=== PATIENT | female | born 1965 | race Caucasian/White ===

== ENCOUNTER 2020-11-29 20:06 | Emergency (ER) | payer OTHER, SELFPAY ==
[2020-11-29 20:32] VITALS: BP 178/106; PULSE 94; RESP 20; TEMP 37.1; O2SAT 97
[2020-11-29] MEDS: KETOROLAC (*BKC) 60 MG/2 ML VIAL IM (20:52)
[2020-11-29] MEDS: ONDANSETRON HCL ODT 4 MG TABLET PO (20:52)
[2020-11-29] MEDS: DIVALPROEX SODIUM ER 500 MG TAB 750 MG PO (20:52)
[2020-11-29] MEDS: DEXAMETHASONE SOD PHOS INJ 4 MG/ML VIAL 10 MG IM (20:58)
[2020-11-29] MEDS: BACLOFEN 10 MG TABLET 20 MG PO (21:00)
--- NOTE | 2020-11-29 21:45 | ED.HA ---
HPI - Headache General Chief Complaint: Headache Stated Complaint: headache Time Seen by Provider: 11/29/20 20:40 Source: patient and family Mode of arrival: ambulatory Limitations: no limitations History of Present Illness HPI Narrative: Patient presents with headache and right sided neck pain for the last few days which has not improved with NSAID at home. Pain is sharp with movement, moderately severe, ongoing, and made worse by moving neck to the right. MD elicited complaint: headache and migraine Pertinent past history: migraines Onset description: gradually Location: right Quality & Timing: sharp and similar to previous headaches Exacerbating factors: movement of head/neck Relieving factors: nothing Context: occurred at rest Associated symptoms: none Related Data Home Medications Medication Instructions Recorded Confirmed pantoprazole 40 mg PO DAILY 11/29/20 11/29/20 sucralfate 1 g PO TIDWMEAL 11/29/20 11/29/20 trazodone 100 mg PO HS 11/29/20 11/29/20 Allergies Allergy/AdvReac Type Severity Reaction Status Date / Time morphine Allergy Itching Verified 11/29/20 20:31 Review of Systems Constitutional: Constitutional: Reports no additional constitutional complaints Eyes: Eyes: Reports no additional eye complaints ENT: Reports system reviewed and no additional complaints, except as documented Cardiovascular: Cardiovascular: Reports no additional cardiovascular complaints Respiratory: Respiratory: Reports no additional respiratory complaints Gastrointestinal: Gastrointestinal: Reports no additional gastrointestinal complaints Genitourinary: Genitourinary: Reports no additional female genitourinary complaints Musculoskeletal: Musculoskeletal: Reports no additional musculoskeletal complaints Integumentary/Breasts: Skin/Breast: Reports system reviewed and no additional complaints, except as docu Neurologic: Reports system reviewed and no additional complaints, except as documented Psychiatric: Psychiatric: Reports no additional psychiatric complaints Endocrine: Endocrine: Reports no additional endocrine complaints Hematologic/Lymphatic: Hematologic/Lymphatic: Reports no additional hematologic/lymphatic complaints Allergic/Immunologic: Allergic/Immunologic: Reports no additional allergic/immunologic complaints [facility] Past Medical History Medical History (Updated 11/30/20 @ 04:12 by Jalil Santana MD) Cervical fusion syndrome Family History Family History (Updated 11/30/20 @ 04:12 by Jalil Santana MD) Mother Carcinoma of colon Social History Social History (Updated 11/30/20 @ 04:13 by Jalil Santana MD) Smoking status: Never smoker Alcohol intake: never Exam Const: General: no acute distress Orientation/consciousness: patient oriented x3 HENMT: Head: normal to inspection Ears: external ears normal and TM's normal bilaterally Face and sinus: normal facial exam Eyes: Conjunctivae: conjunctivae normal Neck: Neck: normal visual inspection Chest: Chest palpation & inspection: normal inspection of the chest Resp: Effort & Inspection: normal respiratory effort Auscultation: clear to auscultation bilaterally Cardio: Rate: regular rate Rhythm: regular rhythm GI: GI Palp: Yes Soft to palpation : General: Yes no CVA tenderness Back/Spine/Pelvis: Back: no CVA tenderness Skin: General skin exam: normal color Neuro: General: patient oriented x3 and moves all extremities Extrem: General: normal to inspection Psych: Appearance: grossly normal Mental Status: mental status grossly normal Thought content: Yes Normal thought content present Course Course Emergency Course: She was given medications to help relax her neck after she was examined well, with particular concern for signs/symptoms of meningitis or new traumatic pain. After a few minutes of the medications she was feeling well and discharges withm scripts for ketorolac 10mg one qid prn, and baclofen 20mg one tid
[2020-11-29 22:02] VITALS: BP 130/78; PULSE 78; RESP 18; O2SAT 98
== END 2020-11-29 22:04 | disposition home or self-care (01) ==
PROVIDERS: Emergency Provider Emergency Medicine; PCP Family Medicine
DX: G43.711 Chronic migraine without aura, intractable, with status migrainosus (principal)
CPT/HCPCS: 96372; 99283; 99284; A9270; J1100; J1885

== ENCOUNTER 2020-12-15 11:42 | Emergency (ER) | payer OTHER, SELFPAY ==
--- NOTE | ~2020-12-15 | XR_ITS ---
EXAMINATION: XR chest 2V DATE: 12/15/2020 13:29 INDICATION: Chest pain. TECHNIQUE: Frontal and lateral views of the chest were obtained. COMPARISON: Chest 2 views 05/13/2018 FINDINGS: The chest demonstrates clear lungs without pneumonia, pleural effusion, or pneumothorax. Th e heart size is normal. There are surgical clips in the abdomen. There are changes of anterior fusion procedure in cervical spine. IMPRESSION: 1. No acute cardiopulmonary disease. Reviewed, dictated and finalized at location A. NESS APPLICATIONS MANAGER
[2020-12-15 12:05] VITALS: BP 176/91; PULSE 103; RESP 20; TEMP 36.9; O2SAT 96
--- NOTE | 2020-12-15 12:08 | ECG_ITS ---
Measurements Intervals [place] Rate: 102 P: 62 [place]: 151 QRS: 40 QRSD: 80 T: 36 QT: 328 QTc: 429 Interpretive Statements SINUS TACHYCARDIA EARLY PRECORDIAL R/S TRANSITION BASELINE WANDER- III BORDERLINE ECG Electronically Signed On 12-15-2020 12:26:07 WORKING SECOND HAND by Casey Laura D.O.
[2020-12-15 12:34] LABS: Basophils Absolute Auto 0.03 K/mm3 (0.00-0.10); Basophils Percent Auto 0.5 % (0.0-1.0); Eosinophils Absolute Auto 0.03 K/mm3 (0.02-0.50); Eosinophils Percent Auto 0.5 % (1.0-6.0); Hematocrit 42.4 % (35.0-49.0); Immature Granulocyte Absolute 0.02 K/mm3 (0.00-0.00); Immature Granulocyte Percent A 0.3 % (0.0-0.0); Lymphocytes Absolute Auto 0.86 K/mm3 (1.10-4.50); Mean Corpuscular Hemoglobin 28.8 pg (27.0-31.0); Mean Corpuscular Volume 87.2 fL (78.0-102.0); Mean Platelet Volume 10.6 fl (9.2-11.8); Monocytes Percent Auto 4.5 % (2.0-11.0); Neutrophils Absolute Auto 5.4 K/mm3 (1.7-7.2); Neutrophils Percent Auto 81.2 % (50.0-70.0); Platelet Count Result 213 K/mm3 (150-420); Red Blood Count 4.86 M/mm3 (4.20-5.40); Red Cell Distribution Width 12.7 % (11.6-14.4); White Blood Count 6.6 K/mm3 (4.8-10.8)
[2020-12-15 12:36] LABS: Appearance Urine Clear (Clear); Bilirubin Urine Negative (Negative); Color Urine Yellow (Yellow); Glucose Urine UA Negative (Negative); Ketones Urine Trace (Negative); Leukocyte Esterase Ur Negative (Negative); Nitrate Urine Negative (Negative); Protein Urine 2+ (Negative); Specific Grav Ur >= 1.030 (1.010-1.020); Urobilinogen Urine 0.2 mg/dL (0.2-1.0); pH Urine 6.5 (5.0-8.0)
[2020-12-15] MEDS: KETOROLAC 30 MG/ML VIAL (*BKC) IV PUSH (12:38)
[2020-12-15] MEDS: SODIUM CHLORIDE 0.9% IV 500 ML 999 ML IV CONT (12:39)
[2020-12-15 12:41] LABS: Add Urine Microscopic? YES; Bacteria Urine Trace /hpf; Blood Urine Trace (Negative); RBC Urine 0-2 /hpf (0-2); Squamous Epithelial Cell Urine Rare /hpf (Few); WBC Urine 0-3 /hpf (0-3)
[2020-12-15 12:48] LABS: D Dimer 0.41 mg/L (0.19-0.50)
[2020-12-15 12:53] LABS: Alanine Aminotransferase 23 U/L (14-59); Albumin Level 3.9 g/dL (3.4-5.0); Alkaline Phosphatase 87 U/L (46-116); Anion Gap 9 mmol/L (8-16); Aspartate Amino Transferase 19 U/L (15-37); Bilirubin,Total 0.3 mg/dL (0.00-1.00); Blood Urea Nitrogen 17 mg/dL (7-18); Calcium 8.9 mg/dL (8.5-10.1); Carbon Dioxide 29 mmol/L (21-32); Chloride 102 mmol/L (98-108); Estimated Glomerular Filt Rate > 60; Glucose 98 mg/dL (70-99); Osmolality Calculated 291 mOsm/kg (285-295); Potassium 3.9 mmol/L (3.5-5.1); Sodium 140 mmol/L (136-145); Total Protein 7.4 g/dL (6.4-8.2); Troponin I 7.5 ng/L (0.00-60.4)
--- NOTE | 2020-12-15 13:38 | ED.GENADULT ---
HPI - General Adult General Chief complaint: Dizziness Stated complaint: Dizzy/head pain/ chest pain/ high blood pressure Source: patient Mode of arrival: ambulatory Limitations: no limitations History of Present Illness HPI narrative: this is a 55-year-old female presents with some headache was seen approximately 2 weeks ago for similar type headache and was diagnosed with a migraine at that time. Patient was seen yesterday in her dentist office and had blood pressure of systolic 220 and they were concerned and asked to follow-up with her primary care physician. Patient is concerned about her blood pressure and developed a headache and some chest tightness with no cough no congestion no shortness of breath no fever chills. Blood pressure had come down and patient has a history of anxiety and marital issues and problems. With a chest pressure was reproducible with no radiation no shortness of breath no diaphoresis no nausea vomiting. Headache is alert typical for her except for it was radiating into her neck and she did explain that she has cervical arthritic type pain. There is no neurological deficits the patient was ambulatory with no nausea or vomiting no blurry vision. Onset (ago): day(s) Location: head and chest Radiation: non-radiation Severity: moderate Severity scale (1-10): 6 Quality: aching Pain Consistency: intermittent Relieving factors: none Exacerbating factors: none Associated symptoms: denies other symptoms Related Data Home Medications Medication Instructions Recorded Confirmed pantoprazole 40 mg PO DAILY 11/29/20 12/15/20 sucralfate 1 g PO TIDWMEAL 11/29/20 12/15/20 trazodone 100 mg PO HS 11/29/20 12/15/20 tramadol 50 mg PO TID PRN 12/15/20 12/15/20 Allergies Allergy/AdvReac Type Severity Reaction Status Date / Time morphine Allergy Itching Verified 11/29/20 20:31 Review of Systems Review of Systems: All systems reviewed & are unremarkable except as noted in HPI and below PMFSH Past Medical History Medical History Cervical fusion syndrome Family History Family History Mother Carcinoma of colon Social History Social History Smoking status: Never smoker Alcohol intake: never Exam Const: General: no acute distress and alert Orientation/consciousness: patient oriented x3 HENMT: Head: normal to inspection Eyes: Conjunctivae: conjunctivae normal Pupils: Equal, round and reactive pupils present EOM: EOMs intact bilaterally Direct Ophthalmoscopy: no photophobia Neck: Neck: normal visual inspection Chest: Chest palpation & inspection: normal inspection of the chest Resp: Effort & Inspection: normal respiratory effort Auscultation: clear to auscultation bilaterally Cardio: Rate: regular rate Rhythm: regular rhythm GI: GI Palp: Yes Soft to palpation : General: Yes no CVA tenderness Urinary Catheter: Urinary Catheter: patent and draining Back/Spine/Pelvis: Back: no CVA tenderness Skin: General skin exam: normal color Rashes: no rashes Neuro: General: patient oriented x3, moves all extremities, no meningeal signs, no focal motor deficits and CN's II-XI intact bilaterally Cranial nerves: Yes Nystagmus not present Speech: normal speech Gait exam (Neuro): Normal gait present Extrem: General: normal to inspection and no pedal edema Psych: Mental Status: mental status grossly normal Affect: normal affect Course Course Emergency Course: Reassessment of patient, patient states that she is more comfortable, did order a head CT but the patient declined stating that she had a normal head CT approximately 2 weeks ago at [facility]. Reviewed all the x-ray and lab findings with patient her blood pressure currently 150/90 and advised to follow-up with her primary care physician to have her blood pressur
[2020-12-15 13:47] VITALS: BP 157/90
== END 2020-12-15 13:50 | disposition home or self-care (01) ==
PROVIDERS: Emergency Provider Emergency Medicine; PCP Family Medicine
DX: G43.909 Migraine, unspecified, not intractable, without status migrainosus (principal); I10 Essential (primary) hypertension
CPT/HCPCS: 36415; 71046; 80053; 81001; 84484; 85025; 85380; 93005; 96361; 96374; 99283; 99284; J1885; J7040

== ENCOUNTER 2020-12-25 20:34 | Emergency (ER) | payer OTHER, SELFPAY ==
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
[2020-12-25 20:49] VITALS: BP 160/78; PULSE 99; RESP 20; TEMP 36.7; O2SAT 98
[2020-12-25] MEDS: KETOROLAC (*BKC) 60 MG/2 ML VIAL IM (21:05)
[2020-12-25 21:07] LABS: Basophils Absolute Auto 0.03 K/mm3 (0.00-0.10); Basophils Percent Auto 0.6 % (0.0-1.0); Eosinophils Absolute Auto 0.06 K/mm3 (0.02-0.50); Eosinophils Percent Auto 1.1 % (1.0-6.0); Hematocrit 42.4 % (35.0-49.0); Hemoglobin 14.2 g/dL (12.0-15.0); Immature Granulocyte Absolute 0.02 K/mm3 (0.00-0.00); Immature Granulocyte Percent A 0.4 % (0.0-0.0); Lymphocytes Percent Auto 22.2 % (18.0-42.0); Mean Corpuscular HGB Conc 33.5 g/dL (32.0-36.0); Mean Corpuscular Hemoglobin 29.1 pg (27.0-31.0); Mean Corpuscular Volume 86.9 fL (78.0-102.0); Mean Platelet Volume 10.7 fl (9.2-11.8); Monocytes Absolute Auto 0.23 K/mm3 (0.10-0.90); Monocytes Percent Auto 4.3 % (2.0-11.0); Neutrophils Absolute Auto 3.9 K/mm3 (1.7-7.2); Neutrophils Percent Auto 71.4 % (50.0-70.0); Platelet Count Result 210 K/mm3 (150-420); Red Blood Count 4.88 M/mm3 (4.20-5.40); Red Cell Distribution Width 12.3 % (11.6-14.4); White Blood Count 5.4 K/mm3 (4.8-10.8)
[2020-12-25 21:16] LABS: Amphetamine Screen Urine Negative (Negative); Barbiturate Screen Urine Negative (Negative); Benzodiazepines Screen Urine Negative (Negative); Cannabinoid Screen Urine Negative (Negative); Cocaine Screen Urine Negative (Negative); Methadone Screen Urine Negative (Negative); Opiate Screen Urine Negative (Negative); Phencyclidine Screen Urine Negative (Negative)
[2020-12-25 21:19] LABS: Partial Thromboplastin Time 25.1 SEC (23.90-30.70); Prothrombin Time 10.6 Seconds (9.50-12.10)
[2020-12-25 21:28] LABS: Appearance Urine Clear (Clear); Bilirubin Urine Negative (Negative); Color Urine Yellow (Yellow); Glucose Urine UA Negative (Negative); Ketones Urine Negative (Negative); Leukocyte Esterase Ur Negative (Negative); Nitrate Urine Negative (Negative); Protein Urine Trace (Negative); Specific Grav Ur <= 1.005 (1.010-1.020); Urobilinogen Urine 0.2 mg/dL (0.2-1.0)
[2020-12-25 21:30] LABS: Alanine Aminotransferase 26 U/L (14-59); Albumin Level 4.1 g/dL (3.4-5.0); Alkaline Phosphatase 96 U/L (46-116); Anion Gap 12 mmol/L (8-16); Aspartate Amino Transferase 29 U/L (15-37); Bilirubin,Total 0.2 mg/dL (0.00-1.00); Blood Urea Nitrogen 15 mg/dL (7-18); Calcium 8.6 mg/dL (8.5-10.1); Carbon Dioxide 29 mmol/L (21-32); Chloride 101 mmol/L (98-108); Creatine Kinase 98 U/L (26-192); Estimated CRCL calculation 56 ml/min; Estimated Glomerular Filt Rate 59; Glucose 112 mg/dL (70-99); Lipase 129 U/L (73-393); Osmolality Calculated 295 mOsm/kg (285-295); Potassium 3.1 mmol/L (3.5-5.1); Sodium 142 mmol/L (136-145)
[2020-12-25 21:33] LABS: Add Urine Microscopic? YES; Blood Urine Trace-Intact (Negative); RBC Urine 0-2 /hpf (0-2); Squamous Epithelial Cell Urine Moderate /hpf (Few)
[2020-12-25 22:16] VITALS: BP 136/77; PULSE 80; RESP 20; TEMP 36.7; O2SAT 98
== END 2020-12-25 22:18 | disposition home or self-care (01) ==
PROVIDERS: Emergency Provider Emergency Medicine; PCP Family Medicine
DX: S30.0XXA Contusion of lower back and pelvis, initial encounter (principal); Y04.0XXA Assault by unarmed brawl or fight, initial encounter
CPT/HCPCS: 36415; 72192; 80053; 80307; 81001; 82550; 83690; 85025; 85610; 85730; 96372; 99283; 99284; J1885

== ENCOUNTER 2020-12-28 13:50 | Outpatient (RCR) | payer OTHER, SELFPAY ==
--- NOTE | 2020-12-28 15:09 | PTOPEVAL ---
Thank you for referring Ashley Mathew to [facility].? The patient is scheduled to be seen for therapy? ____x/week for ___ weeks. Please review, sign, date and return this plan of care SENIA. I agree with and certify that the following plan of care is medically necessary. Referring Physician Date Admitting Provider: Attending Provider: BIJU WINCHESTER Referring Provider: JayleenPT Outpatient Evaluation Start: 12/28/20 13:57 Freq: Status: Active Protocol: Document 12/28/20 14:09 Ashlee (Rec: 12/28/20 15:07 [facility] [id number]) Therapy Assessment Status Assessment Status Assessment Status Evaluation Outpatient Past Medical History Neurological History Hx Migraine Yes Cardiovascular History Hx Hypertension Yes Gastrointestinal History Hx Gastroesophageal Reflux Disease Yes Genitourinary History Hx Nephrectomy Yes Musculoskeletal History Hx Back Pain Yes Hx Spinal Surgery Yes: back and neck HEENT History Hx Tonsillectomy Yes Reproductive History Hx Hysterectomy Yes Evaluation Information Problem Diagnosis neck pain, DDD Onset 12/23/20 Additional Evaluation Detail ndi = 60% Subjective Information patient reports she has been Query Text:As Reported By Patient/ having light neck pain and Family headaches for over a month. however, she reports the past few weeks she has had gradual increased neck pain and severe headaches. she reports however, for the last few days she has had no headaches. she reports she is not doing many activities at home to help keep her headaches down. she reports she has had 3 surgeries to her neck in the past. she reports these have included 3 different fusions. she reports she is fused at multiple levels. patient reports she has increased neck pain and headaches with lifting, turning her head, everything. Prior Level of Function Comments Additional Prior Level of Function prior to 2-3 months ago, Comments patient was able to work in ulises, work in house, use treadmill, and perform daily exercise wit
== END 2021-02-14 13:54 | disposition home or self-care (01) ==
LOC: CHSPT 13:50
DX: M50.30 Other cervical disc degeneration, unspecified cervical region (principal)
CPT/HCPCS: 97014; 97110; 97140; 97161; G0283

== ENCOUNTER 2021-07-17 18:43 | Emergency (ER) | payer OTHER, SELFPAY ==
--- NOTE | ~2021-07-17 | CT_ITS ---
EXAMINATION: CT abdomen pelvis wo con DATE: 07/17/2021 20:09 INDICATION: Upper abdominal pain. Nausea. TECHNIQUE: Computed tomography (CT) of the abdomen and pelvis was performed without intravenous contr ast. Automated exposure control and iterative reconstruction technique were employed. The dose-length product was 523.15 mGy-cm. COMPARISON: CT abdomen and pelvis 02/22/2018 FINDINGS: The visualized portions of the lung bases demonstrate mild atelectasis. No pleural effusion . The heart size is normal. No pericardial effusion. The liver and spleen are normal. There are schultz es of cholecystectomy. The pancreas and adrenal glands are normal. There is a 13 mm cyst in right kid nakita. There are changes of left nephrectomy. There are no dilated loops of bowel. The appendix is norm al. There are no pathologically enlarged lymph nodes. There is no free intraperitoneal fluid. There i s moderate thoracolumbar spondylosis. There is mild chronic height loss of multiple thoracic vertebra l bodies. IMPRESSION: 1. No etiology for the patient's symptoms. Reviewed, dictated and finalized at location A.
[2021-07-17 19:23] VITALS: BP 159/100; PULSE 100; RESP 20; TEMP 36.6; O2SAT 96
--- NOTE | 2021-07-17 19:23 | ECG_ITS ---
Measurements Intervals [place] Rate: 95 P: 34 [place]: 159 QRS: 19 QRSD: 85 T: 32 QT: 348 QTc: 439 Interpretive Statements SINUS RHYTHM NORMAL ECG Electronically Signed On 07-17-2021 20:10:59 CDT by Casey Laura D.O.
[2021-07-17 19:45] LABS: Basophils Absolute Auto 0.03 K/mm3 (0.00-0.10); Basophils Percent Auto 0.4 % (0.0-1.0); Eosinophils Absolute Auto 0.09 K/mm3 (0.02-0.50); Eosinophils Percent Auto 1.1 % (1.0-6.0); Hematocrit 40.8 % (35.0-49.0); Hemoglobin 13.9 g/dL (12.0-15.0); Immature Granulocyte Absolute 0.03 K/mm3 (0.00-0.00); Immature Granulocyte Percent A 0.4 % (0.0-0.0); Lymphocytes Percent Auto 23.4 % (18.0-42.0); Mean Corpuscular HGB Conc 34.1 g/dL (32.0-36.0); Mean Corpuscular Hemoglobin 29.5 pg (27.0-31.0); Mean Corpuscular Volume 86.6 fL (78.0-102.0); Mean Platelet Volume 10.8 fl (9.2-11.8); Monocytes Absolute Auto 0.53 K/mm3 (0.10-0.90); Monocytes Percent Auto 6.2 % (2.0-11.0); Neutrophils Absolute Auto 5.9 K/mm3 (1.7-7.2); Neutrophils Percent Auto 68.5 % (50.0-70.0); Platelet Count Result 221 K/mm3 (150-420); Red Blood Count 4.71 M/mm3 (4.20-5.40); Red Cell Distribution Width 13.1 % (11.6-14.4); White Blood Count 8.5 K/mm3 (4.8-10.8)
[2021-07-17] MEDS: MAG HYDROX/ALUMINUM HYD/SIMETH 30 ML, PHENobarb/HYOSCY/ATROPINE/SCOP 32.4 MG, LIDOCAINE... PO (19:47)
[2021-07-17] MEDS: LORazepam INJ (*CRX) 2 MG/ML VIAL 0.5 MG IV PUSH (19:47)
[2021-07-17] MEDS: PANTOPRAZOLE SODIUM IV 40 MG VIAL IV PUSH (19:47)
[2021-07-17] MEDS: SODIUM CHLORIDE 0.9% IV 1,000 ML 999 ML IV CONT (19:48)
[2021-07-17 20:03] LABS: Alanine Aminotransferase 31 U/L (14-59); Albumin Level 3.7 g/dL (3.4-5.0); Alkaline Phosphatase 107 U/L (46-116); Anion Gap 11 mmol/L (8-16); Aspartate Amino Transferase 17 U/L (15-37); Bilirubin,Total 0.2 mg/dL (0.00-1.00); Blood Urea Nitrogen 20 mg/dL (7-18); Calcium 9.2 mg/dL (8.5-10.1); Carbon Dioxide 28 mmol/L (21-32); Chloride 104 mmol/L (98-108); Estimated CRCL calculation 44 ml/min; Estimated Glomerular Filt Rate 46; Glucose 107 mg/dL (70-99); Lipase 110 U/L (73-393); Osmolality Calculated 298 mOsm/kg (285-295); Potassium 3.6 mmol/L (3.5-5.1); Sodium 143 mmol/L (136-145); Total Protein 7.5 g/dL (6.4-8.2); Troponin I 5.4 ng/L (0.00-60.4)
[2021-07-17 20:06] LABS: Lactic Acid Reflex 1.4 mmol/L (0.4-2.0)
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
[2021-07-17 20:30] VITALS: BP 150/99; PULSE 88; RESP 18; TEMP 36.6; O2SAT 96
== END 2021-07-17 20:35 | disposition home or self-care (01) ==
PROVIDERS: Emergency Provider Emergency Medicine; PCP Family Medicine
DX: K21.9 Gastro-esophageal reflux disease without esophagitis (principal); I10 Essential (primary) hypertension; F41.9 Anxiety disorder, unspecified
CPT/HCPCS: 36415; 74176; 80053; 83605; 83690; 84484; 85025; 93005; 96361; 96374; 96375; 99283; 99284; A9270; C9113; J2060; J7030

== ENCOUNTER 2021-09-05 15:52 | Outpatient (RCR) | payer OTHER, SELFPAY ==
--- NOTE | 2021-09-05 16:33 | PTOPEVAL ---
Thank you for referring Ashley Ricks to [facility].? The patient is scheduled to be seen for therapy? ____x/week for ___ weeks. Please review, sign, date and return this plan of care SENIA. I agree with and certify that the following plan of care is medically necessary. Referring Physician Date Admitting Provider: Attending Provider: Ozzie Sue Referring Provider: *PT Outpatient Evaluation Start: 09/05/21 16:10 Freq: Status: Active Protocol: Document 09/05/21 16:10 [facility] (Rec: 09/05/21 16:33 [facility] [id number]) Therapy Assessment Status Assessment Status Assessment Status Evaluation Outpatient Past Medical History Neurological History Hx Migraine Yes Cardiovascular History Hx Hypertension Yes Gastrointestinal History Hx Gastroesophageal Reflux Disease Yes Genitourinary History Hx Nephrectomy Yes Musculoskeletal History Hx Back Pain Yes Hx Spinal Surgery Yes: back and neck HEENT History Hx Tonsillectomy Yes Evaluation Information Problem Diagnosis R knee pain s/p meniscectomy Onset 08/15/21 Additional Evaluation Detail LEFS= 40% functionally declined Subjective Information patient reports she had pain Query Text:As Reported By Patient/ in the R knee for years. she Family reports she had injections many times in the R knee. she reports she had a flap tear of the R meniscus. she reports she had surgery roughly 3 weeks ago to remove the tear. she reports she is now coming to therapy for rehab of pain, weakness, and mobility of the R knee. patient reports inability to ambulate steps without assist, get on knee at home, and step to her side. Prior Level of Function Comments Additional Prior Level of Function prior to surgery, the R knee Comments would lock up from time to time and hurt all the time. Pain Assessment Timing of Pain Assessment Timing of Pain Assessment Assessment Pain Scale Pain Scale Used Numeric (1 - 10) Self Report Pain Assessment Right Knee(s) Reported Pain Level 3 Greatest Pain Intensity 7 Pain Score Pain Score 3: Self Report Interventions Used Interventions Used By Clinicians Activity or ADL's,Compression Pump,Education,Exercise,Ice Lower Extremity Range of Motio
--- NOTE | 2021-10-09 15:52 | PTOPEVAL ---
Thank you for referring Ashley Ricks to [facility].? The patient is scheduled to be seen for therapy? ____x/week for ___ weeks. Please review, sign, date and return this plan of care SENIA. I agree with and certify that the following plan of care is medically necessary. Referring Physician Date Admitting Provider: Attending Provider: Ozzie Sue Referring Provider: *PT Outpatient Evaluation Start: 09/05/21 16:10 Freq: Status: Active Protocol: Document 10/09/21 14:58 ACR (Rec: 10/09/21 15:52 ACR [id number]) Therapy Assessment Status Assessment Status Assessment Status Discharge Outpatient Past Medical History Neurological History Hx Migraine Yes Cardiovascular History Hx Hypertension Yes Gastrointestinal History Hx Gastroesophageal Reflux Disease Yes Genitourinary History Hx Nephrectomy Yes Musculoskeletal History Hx Back Pain Yes Hx Spinal Surgery Yes: back and neck HEENT History Hx Tonsillectomy Yes Evaluation Information Problem Diagnosis R knee pain s/p menisectomy Onset 08/15/21 Subjective Information Patient reports she still Query Text:As Reported By Patient/ struggles with steps and Family ambulating for a period of time. She states that squatting is extremely painful , but she continues to do them at home. She states that straightening of the knee is difficult as well. She states that steps are easier than they were and she feels a lot stronger. Pain Assessment Timing of Pain Assessment Timing of Pain Assessment Assessment Pain Scale Pain Scale Used Numeric (1 - 10) Self Report Pain Assessment Right Knee(s) Reported Pain Level 0 Greatest Pain Intensity 7 Pain Score Pain Score 0: Self Report Interventions Used Interventions Used By Clinicians Activity or ADL's,Exercise Lower Extremity Range of Motion General Lower Extremity Range of Motion Gross Lower Extremity Range of Motion R AROML Comments Lower Extremity Muscle Strength Testing General Lower Extremity Strength Gross Lower Extremity Strength L hip flexion: 5/5 R hip flexion: 5/5 R knee extension: 5/5 Gait Assessment Gait Assessment Additional Ambulation Comments Patient ambulates into the clinic with good mechanics, but after squats and other
--- NOTE | 2021-10-09 15:55 | PTOPEVAL ---
Thank you for referring Ashley Ricks to [facility].? The patient is scheduled to be seen for therapy? ____x/week for ___ weeks. Please review, sign, date and return this plan of care SENIA. I agree with and certify that the following plan of care is medically necessary. Referring Physician Date Admitting Provider: Attending Provider: Ozzie Sue Referring Provider: *PT Outpatient Evaluation Start: 09/05/21 16:10 Freq: Status: Active Protocol: Document 10/09/21 14:58 ACR (Rec: 10/09/21 15:52 ACR [id number]) Therapy Assessment Status Assessment Status Assessment Status Discharge Outpatient Past Medical History Neurological History Hx Migraine Yes Cardiovascular History Hx Hypertension Yes Gastrointestinal History Hx Gastroesophageal Reflux Disease Yes Genitourinary History Hx Nephrectomy Yes Musculoskeletal History Hx Back Pain Yes Hx Spinal Surgery Yes: back and neck HEENT History Hx Tonsillectomy Yes Evaluation Information Problem Diagnosis R knee pain s/p menisectomy Onset 08/15/21 Subjective Information Patient reports she still Query Text:As Reported By Patient/ struggles with steps and Family ambulating for a period of time. She states that squatting is extremely painful , but she continues to do them at home. She states that straightening of the knee is difficult as well. She states that steps are easier than they were and she feels a lot stronger. Pain Assessment Timing of Pain Assessment Timing of Pain Assessment Assessment Pain Scale Pain Scale Used Numeric (1 - 10) Self Report Pain Assessment Right Knee(s) Reported Pain Level 0 Greatest Pain Intensity 7 Pain Score Pain Score 0: Self Report Interventions Used Interventions Used By Clinicians Activity or ADL's,Exercise Lower Extremity Range of Motion General Lower Extremity Range of Motion Gross Lower Extremity Range of Motion R AROM: 0-3-122 Comments Lower Extremity Muscle Strength Testing General Lower Extremity Strength Gross Lower Extremity Strength L hip flexion: 5/5 R hip flexion: 5/5 R knee extension: 5/5 Gait Assessment Gait Assessment Additional Ambulation Comments Patient ambulates into the clinic with good mechanics, but after squats and other
== END 2021-10-09 16:02 | disposition home or self-care (01) ==
LOC: CHSPT 15:52
PROVIDERS: PCP Family Medicine
DX: Z98.890 Other specified postprocedural states (principal)
CPT/HCPCS: 97016; 97110; 97161; 97530

== ENCOUNTER 2022-03-30 10:59 | Emergency (ER) | payer OTHER, SELFPAY ==
--- NOTE | ~2022-03-30 | XR_ITS ---
XR knee LT 3V DATE: 03/30/2022 11:44 INDICATION: Fall off a porch. Posterior knee pain. TECHNIQUE: Portable three-view examination including crosstable lateral COMPARISON: None FINDINGS: No fracture or dislocation or joint effusion. No periosteal reaction or bone destruction. J oint spaces appear relatively preserved. No radiopaque intra-articular loose body or chondrocalcinosi s. IMPRESSION: Negative Reviewed, dictated and finalized at location B. IMPRESSION: Negative
--- NOTE | ~2022-03-30 | XR_ITS ---
XR hand RT min 3V DATE: 03/30/2022 11:44 INDICATION: Fall off a porch. Fifth digit pain. TECHNIQUE: 3 views of right hand COMPARISON: None FINDINGS: Mild osteoarthritis at some of the interphalangeal joints. No fracture, dislocation, periosteal reaction or bone destruction. IMPRESSION: Mild osteoarthritis No fracture or dislocation is detected Reviewed, dictated and finalized at location B.
[2022-03-30 11:10] VITALS: BP 157/82; PULSE 91; RESP 18; TEMP 36.7; O2SAT 97
--- NOTE | 2022-03-30 13:13 | ED.FALL ---
HPI - Fall General Chief Complaint: Fall Stated Complaint: L knee pain Time Seen by Provider: 03/30/22 11:03 Source: patient and RN notes reviewed Mode of arrival: ambulatory Limitations: no limitations History of Present Illness complaint: fall Onset (ago): hour(s) (1) Fall from: standing and down stairs (#) Fall witnessed: yes, by family Place fall occurred: home Loss of consciousness: none Prolonged down time: no Symptoms prior to fall: none Context: tripped/slipped Location of injury: other (left knee and right 5th finger.) Severity: mild Severity scale (1-10): 4 Quality: dull and aching Associated symptoms (after fall): denies Related Data Home Medications Medication Instructions Recorded Confirmed pantoprazole 40 mg tablet,delayed 40 mg PO DAILY 11/29/20 03/30/22 release trazodone 100 mg tablet 300 mg PO HS 11/29/20 03/30/22 lisinopril 20 1 tablet PO DAILY 12/25/20 03/30/22 mg-hydrochlorothiazide 12.5 mg tablet Allergies Allergy/AdvReac Type Severity Reaction Status Date / Time hydroxychloroquine Allergy Rash Verified 03/30/22 11:15 [From Plaquenil] morphine Allergy Itching Verified 03/30/22 11:15 Review of Systems Review of Systems: All systems reviewed & are unremarkable except as noted in HPI and below Constitutional: Constitutional: Reports no additional constitutional complaints Eyes: Eyes: Reports no additional eye complaints ENT: Reports system reviewed and no additional complaints, except as documented Cardiovascular: Cardiovascular: Reports no additional cardiovascular complaints Respiratory: Respiratory: Reports no additional respiratory complaints Gastrointestinal: Gastrointestinal: Reports no additional gastrointestinal complaints Genitourinary: Genitourinary: Reports no additional female genitourinary complaints Musculoskeletal: Musculoskeletal: Reports no additional musculoskeletal complaints Integumentary/Breasts: Skin/Breast: Reports system reviewed and no additional complaints, except as docu Neurologic: Reports system reviewed and no additional complaints, except as documented Psychiatric: Psychiatric: Reports no additional psychiatric complaints Endocrine: Endocrine: Reports no additional endocrine complaints Hematologic/Lymphatic: Hematologic/Lymphatic: Reports no additional hematologic/lymphatic complaints Allergic/Immunologic: Allergic/Immunologic: Reports no additional allergic/immunologic complaints PMFSH Past Medical History Medical History Cervical fusion syndrome Contusion of knee, left Hypertension Migraine Sprain of finger of right hand Surgical History Surgical History H/O cervical spine surgery H/O: hysterectomy S/p nephrectomy Family History Family History Mother Carcinoma of colon Social History Social History Smoking status: Never smoker Alcohol intake: current Substance use type: does not use Gender identity (if verbalized by the patient): Female Exam Const: General: healthy appearing and no acute distress Nutritional Appearance: well nourished Orientation/consciousness: patient oriented x3 Limitations: no limitations HENMT: Head: normal to inspection Ears: external ears normal, TM's normal bilaterally and EAC's normal General nose exam: Normal external nose present and Normal nares present Face and sinus: normal facial exam and sinuses nontender Mouth: Yes Normal oral and palatal mucosa present and Yes moist mucous membranes Teeth and gingiva: dentition normal Throat: posterior oropharynx normal Eyes: Conjunctivae: conjunctivae normal Pupils: Equal, round and reactive pupils present EOM: EOMs intact bilaterally Neck: Neck: normal visual inspection, no lymphadenopathy and no menin
[2022-03-30 13:27] VITALS: BP 157/82; PULSE 64; RESP 16; TEMP 36.6; O2SAT 97
[2022-03-30] MEDS: IBUPROFEN 400 MG TABLET 800 MG PO (13:31)
--- NOTE | 2022-03-30 13:57 | PC.NURSE ---
pt refused finger john tape and crutches.
== END 2022-03-30 13:40 | disposition home or self-care (01) ==
PROVIDERS: Emergency Provider Emergency Medicine; PCP Family Medicine
DX: S80.02XA Contusion of left knee, initial encounter (principal); S63.616A Unspecified sprain of right little finger, initial encounter; W19.XXXA Unspecified fall, initial encounter
CPT/HCPCS: 73130; 73562; 99284; A9270; L1830

== ENCOUNTER 2022-04-10 09:48 | Outpatient (RCR) | payer OTHER, SELFPAY ==
--- NOTE | 2022-04-10 10:46 | PTOPEVAL ---
Thank you for referring Ashley Young to [facility] [place].? The patient is scheduled to be seen for therapy? ____x/week for ___ weeks. Please review, sign, date and return this plan of care SENIA. I agree with and certify that the following plan of care is medically necessary. Referring Physician Date Admitting Provider: Attending Provider: Maria Elena Kc Referring Provider: *PT Outpatient Evaluation Start: 04/10/22 10:03 Freq: Status: Active Protocol: Document 04/10/22 10:00 [facility] (Rec: 04/10/22 10:45 [facility] [id number]) Therapy Assessment Status Assessment Status Assessment Status Evaluation Outpatient Past Medical History Neurological History Hx Migraine Yes Cardiovascular History Hx Hypertension Yes Gastrointestinal History Hx Gastroesophageal Reflux Disease Yes Genitourinary History Hx Nephrectomy Yes Musculoskeletal History Hx Back Pain Yes Hx Spinal Surgery Yes: back and neck HEENT History Hx Tonsillectomy Yes Evaluation Information Problem Diagnosis R TKA Onset 04/05/22 Additional Evaluation Detail LEFS = 72% functionally declined Subjective Information patient reports her knee was Query Text:As Reported By Patient/ arthritic and needed replaced. Family she reports she had a TKA on 04/05/22. she reports since then she has been trying to do her exercises, but has not been as compliant as she had hoped. she reports the knee is painful at times, and she has been nauseated to start therapy. Prior Level of Function Comments Additional Prior Level of Function prior to surgery, patient Comments reports the knee was painful and tight. she reports she even fell prior to surgery due to pain. she reports she was using no AD prior to surgery. Pain Assessment Timing of Pain Assessment Timing of Pain Assessment Assessment Pain Scale Pain Scale Used Numeric (1 - 10) Self Report Pain Assessment Right Knee(s) Reported Pain Level 3 Pain Frequency Acute,Continuous Greatest Pain Intensity 10 Pain Score Pain Score 3: Self Report Interventions Used Interventions Used By Clinicians Elevation,Ice,Rest Lower Extremity Range of Motion General Lower Extremity Range of Motion Gross Lower Extremity Range of Motion 0-140 degrees arom L knee Co
--- NOTE | 2022-05-09 15:19 | PTOPEVAL ---
Thank you for referring Ashley Young to [facility].? The patient is scheduled to be seen for therapy? __2__x/week for 8 visits. Please review, sign, date and return this plan of care SENIA. I agree with and certify that the following plan of care is medically necessary. Referring Physician Date Admitting Provider: Attending Provider: Maria Elena Kc Referring Provider: *PT Outpatient Evaluation Start: 04/10/22 10:03 Freq: Status: Active Protocol: Document 05/09/22 10:30 [facility] (Rec: 05/09/22 15:19 [facility] [id number]) Therapy Assessment Status Assessment Status Assessment Status Progress Outpatient Past Medical History Neurological History Hx Migraine Yes Cardiovascular History Hx Hypertension Yes Gastrointestinal History Hx Gastroesophageal Reflux Disease Yes Genitourinary History Hx Nephrectomy Yes Musculoskeletal History Hx Back Pain Yes Hx Spinal Surgery Yes: back and neck HEENT History Hx Tonsillectomy Yes Evaluation Information Problem Diagnosis right TKA Onset 04/05/22 Subjective Information Pt. reports that she is Query Text:As Reported By Patient/ frustrated with her continued Family pain and stiffness. She states that her motion becomes limited when her sciatic nerve flares up. She reports she is having a flare up of the sciatic nerve today and the right knee feels more stiff. She states that she remains aggressive with exercise at home. She states that she will return to her doctor in 1-2 weeks. Pain Assessment Timing of Pain Assessment Timing of Pain Assessment Pre-Treatment Pain Scale Pain Scale Used Numeric (1 - 10) Self Report Pain Assessment Right Thigh(s) Reported Pain Level 4 Greatest Pain Intensity 10 Right Knee(s) Reported Pain Level 4 Greatest Pain Intensity 10 Pain Score Pain Score 4,4: Self Report Interventions Used Interventions Used By Clinicians Compression Pump,Exercise, Manual Therapy Techniques Lower Extremity Range of Motion General Lower Extremity Range of Motion Gross Lower Extremity Range of Motion Pt. demonstrates 10-88 degrees Comments right knee AROM post stretching. Lower Extremity Muscle Strength Testing General Lower Extremity Strength Gross Lower Extremity Strength
--- NOTE | 2022-05-23 08:13 | PTOPEVAL ---
Thank you for referring Ashley Young to [facility].? The patient is scheduled to be seen for therapy? ____x/week for ___ weeks. Please review, sign, date and return this plan of care SENIA. I agree with and certify that the following plan of care is medically necessary. Referring Physician Date Admitting Provider: Attending Provider: Maria Elena Kc Referring Provider: *PT Outpatient Evaluation Start: 04/10/22 10:03 Freq: Status: Active Protocol: Document 05/17/22 10:30 [facility] (Rec: 05/23/22 08:13 [facility] [email or web address]) Therapy Assessment Status Assessment Status Assessment Status Progress Outpatient Past Medical History Neurological History Hx Migraine Yes Cardiovascular History Hx Hypertension Yes Gastrointestinal History Hx Gastroesophageal Reflux Disease Yes Genitourinary History Hx Nephrectomy Yes Musculoskeletal History Hx Back Pain Yes Hx Spinal Surgery Yes: back and neck HEENT History Hx Tonsillectomy Yes Evaluation Information Problem Diagnosis right TKA Onset 04/05/22 Subjective Information patient returns to skilled PT Query Text:As Reported By Patient/ 1 day post manipulation under Family anesthesia with new orders to continue skilled PT at increased frequency. Pain Assessment Timing of Pain Assessment Timing of Pain Assessment Assessment Self Report Self Report Pain Level 0 Pain Score Pain Score 0: Self Report Lower Extremity Range of Motion General Lower Extremity Range of Motion Gross Lower Extremity Range of Motion -10 degrees from 0 AROM R knee Comments extension -8 degrees from 0 PROM R knee extension 110 degree PROM R knee flexion Gait Assessment Gait Assessment Additional Ambulation Comments patient continues to display R knee flexion contracture in standing posture and with ambulation noting decreased or no heel contact at initial contact phase of gait. General Exercise General Exercises Exercise Description Ther ex Query Text:Record Sets, Reps, -prone knee extension 10 Resistance, and Position minutes -passive knee extension 5 minutes -passive knee flexion 10 minutes -re-evaluation of numbers x5 minutes Modalities Interm
--- NOTE | 2022-05-25 09:57 | PCPTNOTE ---
05/25/2022 Patient Ashley Young was seen in our office this date for continued knee rehab following post op TKA. pt was in our office on 05/17/22, the day after knee manipulation and every business day since manipulation for a total of 2 treatments last week and 4 treatments this week. pt reports she is working hard on her own at home stating she usually performs her exercises 4 times daily. Ms Young's in office treatment is focused on improving both knee flexion and extension with an extensive amount of manual therapy performed consisting of contract relax for knee flexion in supine, seated, and prone, as well as passive and aarom to improve knee flexion. pt is provided with passive and aarom to improve knee extension, passive HS stretching, supine over pressure for knee extension, patella mobs, static knee extension stretch in supine as well as prone hang. pt has been provided with STM with use of [place]aston to HS and post knee to improve knee extension as well as to anterior thigh to promote knee flexion. pt receives this treatment for approximately 60 minutes before receiving ice compression at end to decrease pain and inflammation. pt ROM measurements this date are as follows and are achieved after the above treatment and to pt maximum tolerance. PROM right knee ext (-5), PROM right knee flexion (106). Daily PROM measurements since manipulation are as follows: 05/17/22 ext (-8), flex (110) 05/18/22 ext (-9), flex (110) 05/22/22 ext (-9), flex (108) 05/23/22 ext (-10), flex (108) 05/24/22 ext (-5), flex (109) 05/25/22 ext (-5), flex (106) Ms. Young is currently scheduled to be seen 2 times weekly for the next 3 weeks. Please contact us with any questions or concerns in regards to Ms. Young's treatment. SERGEI SanchesT
--- NOTE | 2022-05-25 11:22 | PTOPEVAL ---
Thank you for referring Ashley Young to [facility].? The patient is scheduled to be seen for therapy? ____x/week for ___ weeks. Please review, sign, date and return this plan of care SENIA. I agree with and certify that the following plan of care is medically necessary. Referring Physician Date Admitting Provider: Attending Provider: Maria Elena Kc Referring Provider: *PT Outpatient Evaluation Start: 04/10/22 10:03 Freq: Status: Active Protocol: Document 05/17/22 10:30 [facility] (Rec: 05/23/22 08:13 [facility] [id number]) Therapy Assessment Status Assessment Status Assessment Status Progress Outpatient Past Medical History Neurological History Hx Migraine Yes Cardiovascular History Hx Hypertension Yes Gastrointestinal History Hx Gastroesophageal Reflux Disease Yes Genitourinary History Hx Nephrectomy Yes Musculoskeletal History Hx Back Pain Yes Hx Spinal Surgery Yes: back and neck HEENT History Hx Tonsillectomy Yes Evaluation Information Problem Diagnosis right TKA Onset 04/05/22 Subjective Information patient returns to skilled PT Query Text:As Reported By Patient/ 1 day post manipulation under Family anesthesia with new orders to continue skilled PT at increased frequency. Pain Assessment Timing of Pain Assessment Timing of Pain Assessment Assessment Self Report Self Report Pain Level 0 Pain Score Pain Score 0: Self Report Lower Extremity Range of Motion General Lower Extremity Range of Motion Gross Lower Extremity Range of Motion -10 degrees from 0 AROM R knee Comments extension -8 degrees from 0 PROM R knee extension 110 degree PROM R knee flexion Gait Assessment Gait Assessment Additional Ambulation Comments patient continues to display R knee flexion contracture in standing posture and with ambulation noting decreased or no heel contact at initial contact phase of gait. General Exercise General Exercises Exercise Description Ther ex Query Text:Record Sets, Reps, -prone knee extension 10 Resistance, and Position minutes -passive knee extension 5 minutes -passive knee flexion 10 minutes -re-evaluation of numbers x5 minutes Modalities Interm
--- NOTE | 2022-06-05 12:52 | PTOPEVAL ---
Thank you for referring Ashley Young to [facility].? The patient is scheduled to be seen for therapy? 1-2x/week for 8 visits. Please review, sign, date and return this plan of care SENIA. I agree with and certify that the following plan of care is medically necessary. Referring Physician Date Admitting Provider: Attending Provider: Maria Elena Kc Referring Provider: *PT Outpatient Evaluation Start: 04/10/22 10:03 Freq: Status: Active Protocol: Document 06/05/22 10:09 [facility] (Rec: 06/05/22 11:08 [facility] [email or web address]) Therapy Assessment Status Assessment Status Assessment Status Re-evaluation Outpatient Past Medical History Neurological History Hx Migraine Yes Cardiovascular History Hx Hypertension Yes Gastrointestinal History Hx Gastroesophageal Reflux Disease Yes Genitourinary History Hx Nephrectomy Yes Musculoskeletal History Hx Back Pain Yes Hx Spinal Surgery Yes: back and neck HEENT History Hx Tonsillectomy Yes Evaluation Information Problem Diagnosis R TKA and lumbar radiculopathy Onset 04/05/22 Subjective Information Pt presents to PT post R TKA Query Text:As Reported By Patient/ with referral for lumbar pain. Family She reports that her lumbar pain has been going on since her R TKA surgery and is felt mainly in her R glute but can go down into her foot when it is worse. Patient describes numbness/tingling and burning in her glute. Pain increases when she is standing, walking, or performing her current knee exercises (especially with hamstring stretching). She reports significant difficulty with sleeping recently because of her glute. Her TENS machine seems to be the only form of relief for her back. Pain Assessment Timing of Pain Assessment Timing of Pain Assessment Pre-Treatment Pain Scale Pain Scale Used Numeric (1 - 10) Self Report Pain Assessment Right Thigh(s) Reported Pain Level 4 Right Knee(s) Reported Pain Level 4 Pain Score Pain Score 4,4: Self Report Interventions Used Interventions Used By Clinicians Activity or ADL's,Education, Exercise Cervical and Lumbar ROM Lumbar ROM Lumb
--- NOTE | 2022-07-09 13:10 | PTOPEVAL ---
Thank you for referring Ashley Young to [facility].? The patient is scheduled to be seen for therapy? __5__x/week for 1 week and 3x/week for 2 weeks for a total of 11 visits. Please review, sign, date and return this plan of care SENIA. I agree with and certify that the following plan of care is medically necessary. Referring Physician Date Admitting Provider: Attending Provider: Maria Elena Kc Referring Provider: MAURIZIO LOERA *PT Outpatient Evaluation Start: 04/10/22 10:03 Freq: Status: Active Protocol: Document 07/09/22 12:04 SAYRA (Rec: 07/09/22 13:10 SAYRA [id number]) Therapy Assessment Status Assessment Status Assessment Status Progress Outpatient Past Medical History Neurological History Hx Migraine Yes Cardiovascular History Hx Hypertension Yes Gastrointestinal History Hx Gastroesophageal Reflux Disease Yes Genitourinary History Hx Nephrectomy Yes Musculoskeletal History Hx Back Pain Yes Hx Spinal Surgery Yes: back and neck HEENT History Hx Tonsillectomy Yes Evaluation Information Problem Diagnosis s/p right TKA, 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 returns to the clinic on Query Text:As Reported By Patient/ this date. She reoprts that Family her doctor did a surgical release of her scar tissue in the right knee. She reports that her knee feels better already following surgery. I talked with the nurse from her surgeons office who stated the knee was bending better, but still unable to straighten the knee. She reports she has been very aggressive with exercise over the past weekend . She states that her goal remains to improve her knee mobility and walk normally. Pain Assessment Timing of Pain Assessment Timing of Pain Assessment Pre-Treatment Pain Scale Pain Scale Used Numeric (1 - 10) Self Report Pain Assessment Right Thigh(s) Reported Pain Level 0 Pain Frequency Intermittent Lowest Pain Intensity 0 Greatest Pain Intensity 7 Pain Aggravating Factors Exercise/Activity Pain Behaviors Screaming Right Knee(s) Reported Pain Level 0 Lo
== END 2022-07-09 23:59 | disposition home or self-care (01) ==
LOC: CHSPT 09:48
DX: M25.561 Pain in right knee (principal); Z96.651 Presence of right artificial knee joint; T84.89XA Other specified complication of internal orthopedic prosthetic devices, implants and grafts, initial encounter; M54.16 Radiculopathy, lumbar region
CPT/HCPCS: 97014; 97016; 97110; 97140; 97161; G0283

== ENCOUNTER 2022-07-10 13:19 | Outpatient (RCR) | payer OTHER, SELFPAY | END 2022-07-19 14:54 | disposition home or self-care (01) | LOC: CHSPT 13:19 | DX: T84.89XA Other specified complication of internal orthopedic prosthetic devices, implants and grafts, initial encounter (principal); Z96.651 Presence of right artificial knee joint | CPT/HCPCS: 97016; 97110; 97140 ==

== ENCOUNTER 2022-09-21 18:17 | Emergency (ER) | payer OTHER, SELFPAY ==
--- NOTE | 2022-09-21 18:22 | ED.URI ---
HPI - URI/Sore Throat General Chief Complaint: Upper Respiratory Infection Stated Complaint: headache/nauseous Time Seen by Provider: 09/21/22 18:22 Source: patient and RN notes reviewed Mode of arrival: ambulatory Limitations: no limitations History of Present Illness MD elicited complaint: nasal congestion Onset (ago): hour(s) (4) Exacerbating factors: other ( vomiting) Relieving factors: nothing Context: sick contacts ( sister with COVID) Associated symptoms: myalgias, nausea, vomiting and other ( Headache) Related Data Home Medications Medication Instructions Recorded Confirmed pantoprazole 40 mg tablet,delayed 40 mg PO DAILY 11/29/20 09/21/22 release trazodone 100 mg tablet 300 mg PO HS 11/29/20 09/21/22 Allergies Allergy/AdvReac Type Severity Reaction Status Date / Time hydroxychloroquine Allergy Rash Verified 03/30/22 11:15 [From Plaquenil] morphine Allergy Itching Verified 03/30/22 11:15 Review of Systems Review of Systems: All systems reviewed & are unremarkable except as noted in HPI and below Constitutional: Constitutional: Denies chills and Denies fever(s) ENT: Reports as per HPI and Denies sore throat Respiratory: Respiratory: Denies cough and Denies dyspnea Gastrointestinal: Gastrointestinal: Reports as per HPI Musculoskeletal: Musculoskeletal: Reports as per HPI PMF Past Medical History Medical History (Updated 09/21/22 @ 19:25 by Jalil Mcguire MD) Cervical fusion syndrome Contusion of knee, left GERD (gastroesophageal reflux disease) Hypertension Migraine Sprain of finger of right hand Surgical History Surgical History H/O cervical spine surgery H/O: hysterectomy S/p nephrectomy Family History Family History Mother Carcinoma of colon Social History Social History Smoking status: Never smoker Alcohol intake: current Substance use type: does not use Gender identity (if verbalized by the patient): Female Exam Const: General: no acute distress, alert and ill appearing acutely Nutritional Appearance: well nourished Orientation/consciousness: patient oriented x3 Limitations: no limitations HENMT: Head: normal to inspection Ears: external ears normal Face/Nose/Sinus: Normal external nose present Face and sinus: normal facial exam Mouth: Yes moist mucous membranes Eyes: Conjunctivae: conjunctivae normal Pupils: Equal, round and reactive pupils present EOM: EOMs intact bilaterally Neck: Neck: normal visual inspection Resp: Effort & Inspection: normal respiratory effort Auscultation: clear to auscultation bilaterally Cardio: Rate: regular rate Rhythm: regular rhythm GI: GI Palp: Yes Soft to palpation and No Tenderness to palpation present (GI) Auscultation: normal bowel sounds Back/Spine/Pelvis: Cervical Spine: cervical ROM normal Thoracic/Lumbar Spine: thoraco-lumbar ROM normal Skin: General skin exam: normal color Rashes: no rashes Neuro: General: patient oriented x3, moves all extremities, no focal motor deficits and CN's II-XI intact bilaterally Speech: normal speech Gait exam (Neuro): Normal gait present Extrem: General: normal to inspection Psych: Mental Status: mental status grossly normal Affect: normal affect Attitude: cooperative Course Vital Signs Vital signs: Vital Signs Temperature 37.1 C 09/21/22 18:32 Pulse Rate 100 09/21/22 18:32 Respiratory Rate 20 09/21/22 18:32 Blood Pressure 180/70 H 09/21/22 18:32 Pulse Oximetry 96 09/21/22 18:32 Oxygen Delivery Room Air 09/21/22 18:32 Temperature 37.2 C 09/21/22 19:12 Pulse Rate 100 09/21/22 19:12 Respiratory Rate 20 09/21/22 19:12 Blood Pressure 140/90 09/21/22 19:12 Pulse Oximetry 96 09/21/22 19:12 Oxygen Delivery Room Air 09/21/22 19:12 MDM - URI/Shaun Buitrago
[2022-09-21 18:32] VITALS: BP 180/70; PULSE 100; RESP 20; TEMP 37.1; O2SAT 96
--- NOTE | 2022-09-21 18:38 | PC.NURSE ---
patient states I have high B/P but I don't take the meds for it, and stated I took my last tramadol. admits to alcohol, marijuana & cigarette use
[2022-09-21] MEDS: KETOROLAC 30 MG/ML VIAL (*BKC) IM (18:44)
[2022-09-21] MEDS: ONDANSETRON HCL ODT 4 MG TABLET PO (18:44)
[2022-09-21 19:12] VITALS: BP 140/90; PULSE 100; RESP 20; TEMP 37.2; O2SAT 96
[2022-09-21 19:19] LABS: Influenza A QL RT-PCR Negative (Negative); Influenza B QL RT-PCR Negative (Negative); SARS-CoV-2 RNA PCR Negative (Negative)
[2022-09-21 19:42] VITALS: BP 140/88; PULSE 88; RESP 18; TEMP 37.2; O2SAT 98
== END 2022-09-21 19:43 | disposition home or self-care (01) ==
PROVIDERS: Emergency Provider Emergency Medicine; PCP Family Medicine
DX: B34.9 Viral infection, unspecified (principal); Z20.822 Contact with and (suspected) exposure to COVID-19
CPT/HCPCS: 87502; 96372; 99283; A9270; J1885; U0003; U0005

== ENCOUNTER 2022-09-28 02:40 | Emergency (ER) | payer OTHER, SELFPAY ==
--- NOTE | ~2022-09-28 | CT_ITS ---
EXAMINATION: CT brain wo con DATE: 09/28/2022 03:22 INDICATION: Posterior and right-sided headache for one day with nausea and vomiting. Sensitivity to l ight. TECHNIQUE: Computed tomography (CT) of the head was performed without intravenous contrast. The mA wa s adjusted according to patient size. Iterative reconstruction technique was employed. Exam dose: 60 5.33 mGy-cm total exam DLP. COMPARISON: None FINDINGS: No intracranial mass lesion or hemorrhage, midline shift or mass effect. Normal ventricular size. No subdural or epidural hematoma. Orbital contents appear normal. There is new comparison thickening in the very superior aspect of the left maxillary sinus which is m inimally included in this examination. There is some patchy soft tissue thickening of the ethmoid air cells bilaterally. The included paranasal sinuses and the mastoid air cells are normally developed and aerated otherwise . No fracture or bone destruction of the cranial vault. IMPRESSION: No significant intracranial abnormality Reviewed, dictated and finalized at [facility]. Reviewed, dictated and finalized at [facility]. [employer]IE[employer] EXECUTIVE
[2022-09-28 02:45] VITALS: BP 153/100; PULSE 110; RESP 20; TEMP 36.6; O2SAT 97
[2022-09-28] MEDS: KETOROLAC 30 MG/ML VIAL (*BKC) IV PUSH (03:04)
[2022-09-28] MEDS: ONDANSETRON INJ 4 MG/2 ML VIAL IV PUSH (03:04)
[2022-09-28] MEDS: SODIUM CHLORIDE 0.9% IV 500 ML 999 ML IV CONT (03:05)
[2022-09-28 04:26] VITALS: BP 180/95; PULSE 87; RESP 20; O2SAT 97
--- NOTE | 2022-09-28 04:44 | ED.HA ---
HPI - Headache General Chief Complaint: Headache Stated Complaint: headache Source: patient Mode of arrival: ambulatory Limitations: no limitations History of Present Illness HPI Narrative: This is a 57-year-old female presents with an intense headache in the occipital region and in her neck with some nausea and episodes of vomiting patient took Tylenol with minimal relief prior to arrival, there is no blurry vision patient has a history of cervical disc bulge status post surgery in the past, there is no numbness or tingling no neurological deficits. MD elicited complaint: headache Onset (ago): hour(s) Onset description: gradually and while at rest Location: generalized Severity: moderate Related Data Home Medications Medication Instructions Recorded Confirmed trazodone 100 mg tablet 300 mg PO HS 11/29/20 09/28/22 Allergies Allergy/AdvReac Type Severity Reaction Status Date / Time hydroxychloroquine Allergy Rash Verified 03/30/22 11:15 [From Plaquenil] morphine Allergy Itching Verified 03/30/22 11:15 Review of Systems Review of Systems: All systems reviewed & are unremarkable except as noted in HPI and below PMFSH Past Medical History Medical History Cervical fusion syndrome Contusion of knee, left GERD (gastroesophageal reflux disease) Hypertension Migraine Sprain of finger of right hand Surgical History Surgical History H/O cervical spine surgery H/O: hysterectomy S/p nephrectomy Family History Family History Mother Carcinoma of colon Social History Social History Smoking status: Never smoker Alcohol intake: current Substance use type: does not use Gender identity (if verbalized by the patient): Female Exam Const: General: healthy appearing Nutritional Appearance: well nourished Orientation/consciousness: patient oriented x3 Limitations: no limitations HENMT: Head: normal to inspection Face/Nose/Sinus: Normal external nose present Face and sinus: normal facial exam Mouth: Yes Normal oral and palatal mucosa present Eyes: Conjunctivae: conjunctivae normal Pupils: Equal, round and reactive pupils present EOM: EOMs intact bilaterally Chest: Chest palpation & inspection: normal inspection of the chest Resp: Effort & Inspection: normal respiratory effort Cardio: Rate: regular rate Rhythm: regular rhythm GI: GI Palp: Yes Soft to palpation : General: Yes bladder normal to palpation Urinary Catheter: Urinary Catheter: patent and draining Back/Spine/Pelvis: Back: no CVA tenderness Skin: General skin exam: normal color Rashes: no rashes Neuro: General: patient oriented x3, moves all extremities, no meningeal signs and no focal motor deficits Extrem: General: normal to inspection Psych: Mental Status: mental status grossly normal Affect: normal affect Course Course Emergency Course: Patient received IV Toradol/ IV fluid and Zofran headache improved after reassessment, CT scan was performed and advised to follow-up with primary care physician Vital Signs Vital signs: Vital Signs Temperature 36.6 C 09/28/22 02:45 Pulse Rate 110 H 09/28/22 02:45 Respiratory Rate 20 09/28/22 02:45 Blood Pressure 153/100 H 09/28/22 02:45 Pulse Oximetry 97 09/28/22 02:45 Oxygen Delivery Room Air 09/28/22 02:45 Temperature 36.6 C 09/28/22 02:45 Pulse Rate 87 09/28/22 04:26 Respiratory Rate 20 09/28/22 04:26 Blood Pressure 180/95 H 09/28/22 04:26 Pulse Oximetry 97 09/28/22 04:26 Oxygen Delivery Room Air 09/28/22 04:26 Critical Care Time Critical Care Time Critical Care Time: No Discharge Plan Discharge Clinical Impression: Headache Qualifiers: Headache type: unspecified Patient Disposition: [facility]
[2022-09-28 04:55] VITALS: BP 159/87; PULSE 78; RESP 18; TEMP 36.7; O2SAT 98
== END 2022-09-28 05:00 | disposition home or self-care (01) ==
PROVIDERS: Emergency Provider Emergency Medicine; PCP Family Medicine
DX: R51.9 Headache, unspecified (principal)
CPT/HCPCS: 70450; 96374; 96375; 99284; J1885; J2405; J7040

== ENCOUNTER 2022-12-04 20:39 | Emergency (ER) | payer OTHER, SELFPAY ==
--- NOTE | ~2022-12-04 | CT_ITS ---
EXAMINATION: CT abdomen pelvis wo con DATE: 12/04/2022 21:25 INDICATION: Right flank pain. TECHNIQUE: Computed tomography (CT) of the abdomen and pelvis was performed without intravenous contr ast. Automated exposure control and iterative reconstruction technique were employed. The dose-length product was 608.86 mGy-cm. COMPARISON: CT abdomen and pelvis 07/17/2021 FINDINGS: The visualized portions of the lung bases demonstrate mild scarring in paraspinal right low er lobe. There is mild atelectasis bilaterally. No pleural effusion. The heart size is normal. There are coronary artery calcifications. No pericardial effusion. The liver is normal. There are changes o f cholecystectomy. The spleen, pancreas, and adrenal glands are normal. There is a 13 mm cyst in righ t kidney. There are changes of left nephrectomy. There is no urolithiasis. There are no dilated loops of bowel. The appendix is normal. There are no pathologically enlarged lymph nodes. There is no free intraperitoneal fluid. There is severe thoracic spondylosis and moderate lumbar spondylosis. IMPRESSION: 1. No urolithiasis. Reviewed, dictated and finalized at [facility]. STMENT EXAMINER IMPRESSION: 1. No urolithiasis.
--- NOTE | 2022-12-04 20:43 | ED.ABDPAIN ---
HPI - Abdominal Pain General Chief Complaint: Back Pain/Injury Stated Complaint: right lower back pain Time Seen by Provider: 12/04/22 20:40 Source: patient and RN notes reviewed Mode of arrival: ambulatory Limitations: no limitations History of Present Illness MD elicited complaint: flank pain Pertinent past history: kidney stones Onset (ago): hour(s) (1) Pain Consistency: constant Location: R flank Severity: severe Quality: stabbing and sharp Radiation: none Migration to: no migration Exacerbating factors: nothing Relieving factors: nothing Associated symptoms: nausea Related Data Home Medications Medication Instructions Recorded Confirmed trazodone 100 mg tablet 300 mg PO HS 11/29/20 09/28/22 amlodipine 10 mg tablet 10 mg PO DAILY 09/28/22 09/28/22 Allergies Allergy/AdvReac Type Severity Reaction Status Date / Time hydroxychloroquine Allergy Rash Verified 03/30/22 11:15 [From Plaquenil] morphine Allergy Itching Verified 03/30/22 11:15 Review of Systems Review of Systems: All systems reviewed & are unremarkable except as noted in HPI and below PMFSH Past Medical History Medical History Cervical fusion syndrome Contusion of knee, left GERD (gastroesophageal reflux disease) Hypertension Migraine Sprain of finger of right hand Surgical History Surgical History H/O cervical spine surgery H/O: hysterectomy S/p nephrectomy Family History Family History Mother Carcinoma of colon Social History Social History Smoking status: Never smoker Alcohol intake: current Substance use type: does not use Gender identity (if verbalized by the patient): Female Exam Const: General: no acute distress, alert and ill appearing acutely Nutritional Appearance: well nourished Orientation/consciousness: patient oriented x3 Limitations: no limitations HENMT: Head: normal to inspection Ears: external ears normal Face/Nose/Sinus: Normal external nose present Face and sinus: normal facial exam Mouth: Yes moist mucous membranes Eyes: Conjunctivae: conjunctivae normal Pupils: Equal, round and reactive pupils present EOM: EOMs intact bilaterally Neck: Neck: normal visual inspection Resp: Effort & Inspection: normal respiratory effort Auscultation: clear to auscultation bilaterally Cardio: Rate: regular rate Rhythm: regular rhythm GI: GI Palp: Yes Soft to palpation, No Tenderness to palpation present (GI) and No Guarding due to palpation present (GI) Auscultation: normal bowel sounds Back/Spine/Pelvis: Back: CVA tenderness ( Moderate on the right) Cervical Spine: cervical ROM normal Thoracic/Lumbar Spine: thoraco-lumbar ROM normal Skin: General skin exam: normal color Rashes: no rashes Neuro: General: patient oriented x3, moves all extremities, no focal motor deficits and CN's II-XI intact bilaterally Speech: normal speech Gait exam (Neuro): Normal gait present Extrem: General: normal to inspection and no clubbing, cyanosis or edema Psych: Mental Status: mental status grossly normal Affect: normal affect Attitude: cooperative Course Course Emergency Course: Patient given Toradol 30 mg IM and Zofran 4 mg ODT. Nausea is better she continues to have spasms in her back. CT scan shows no evidence of any abnormality or kidney stone. She does show some spondylolysis in her back which is probably causing her back pain. She is not able to take NSAIDs due to only having 1 kidney. I will give her a tramadol that she can take when she gets home and then a prescription for tramadol and follow up with her primary care physician. Vital Signs Vital signs: Vital Signs Temperature 36.5 C 12/04/22 20:44 Pulse Rate 100 12/04/22 20:44 Respiratory Rate 16 12/04/22 20:44 Blood Pr
[2022-12-04 20:44] VITALS: BP 185/89; PULSE 100; RESP 16; TEMP 36.5; O2SAT 96
[2022-12-04 20:45] VITALS: BP 185/89; PULSE 100; RESP 20; TEMP 36.5; O2SAT 96
[2022-12-04 20:53] LABS: Add Urine Microscopic? YES; Appearance Urine Clear (Clear); Bilirubin Urine Negative (Negative); Blood Urine Negative (Negative); Color Urine Light Yellow (Yellow); Glucose Urine UA Negative (Negative); Ketones Urine Negative (Negative); Leukocyte Esterase Ur Negative LEU/UL (Negative); Nitrate Urine Negative (Negative); Protein Urine 2+ (Negative); Specific Grav Ur 1.025 (1.010-1.020); Urobilinogen Urine 0.2 mg/dL (0.2-1.0); pH Urine 7.5 (5.0-8.0)
[2022-12-04 20:58] LABS: Bacteria Urine Trace /hpf; RBC Urine 0-2 /hpf (0-2); Squamous Epithelial Cell Urine Rare /hpf (Few); WBC Urine 0-3 /hpf (0-3)
[2022-12-04] MEDS: KETOROLAC 30 MG/ML VIAL (*BKC) IV PUSH (21:13)
[2022-12-04] MEDS: ONDANSETRON HCL ODT 4 MG TABLET PO (21:13)
[2022-12-04 21:17] LABS: Basophils Absolute Auto 0.04 K/mm3 (0.00-0.10); Basophils Percent Auto 0.7 % (0.0-1.0); Eosinophils Percent Auto 1.7 % (1.0-6.0); Hematocrit 38.7 % (35.0-49.0); Hemoglobin 12.9 g/dL (12.0-15.0); Immature Granulocyte Absolute 0.01 K/mm3 (0.00-0.00); Immature Granulocyte Percent A 0.2 % (0.0-0.0); Lymphocytes Absolute Auto 1.73 K/mm3 (1.10-4.50); Lymphocytes Percent Auto 29.4 % (18.0-42.0); Mean Corpuscular HGB Conc 33.3 g/dL (32.0-36.0); Mean Corpuscular Hemoglobin 29.5 pg (27.0-31.0); Mean Corpuscular Volume 88.4 fL (78.0-102.0); Mean Platelet Volume 10.6 fl (9.2-11.8); Monocytes Absolute Auto 0.41 K/mm3 (0.10-0.90); Neutrophils Absolute Auto 3.6 K/mm3 (1.7-7.2); Platelet Count Result 205 K/mm3 (150-420); Red Blood Count 4.38 M/mm3 (4.20-5.40); Red Cell Distribution Width 12.9 % (11.6-14.4); White Blood Count 5.9 K/mm3 (4.8-10.8)
[2022-12-04 21:32] LABS: Alanine Aminotransferase 24 U/L (14-59); Albumin Level 3.4 g/dL (3.4-5.0); Alkaline Phosphatase 102 U/L (46-116); Anion Gap 6 mmol/L (8-16); Aspartate Amino Transferase 15 U/L (15-37); Bilirubin,Total 0.2 mg/dL (0.00-1.00); Blood Urea Nitrogen 17 mg/dL (7-18); Carbon Dioxide 31 mmol/L (21-32); Chloride 103 mmol/L (98-108); Estimated CRCL calculation 53 ml/min; Estimated Glomerular Filt Rate 58; Glucose 113 mg/dL (70-99); Osmolality Calculated 292 mOsm/kg (285-295); Potassium 3.7 mmol/L (3.5-5.1); Sodium 140 mmol/L (136-145); Total Protein 6.9 g/dL (6.4-8.2)
[2022-12-04 21:33] LABS: CRP < 0.5 mg/dL (0.0-0.9)
[2022-12-04] MEDS: traMADol HCL (*CRX) 50 MG TABLET PO (22:26)
[2022-12-04 22:29] VITALS: BP 141/81; PULSE 88; RESP 20; TEMP 36.6; O2SAT 99
== END 2022-12-04 22:32 | disposition home or self-care (01) ==
PROVIDERS: Emergency Provider Emergency Medicine; PCP Family Medicine
DX: S39.012A Strain of muscle, fascia and tendon of lower back, initial encounter (principal); I10 Essential (primary) hypertension; X58.XXXA Exposure to other specified factors, initial encounter
CPT/HCPCS: 36415; 74176; 80053; 81001; 85025; 86140; 96374; 99284; A9270; J1885

== ENCOUNTER 2023-01-26 15:16 | Emergency (ER) | payer OTHER, SELFPAY ==
[2023-01-26 15:16] VITALS: BP 187/95; PULSE 105; RESP 20; TEMP 37.7; O2SAT 97
--- NOTE | 2023-01-26 15:30 | ED.URI ---
HPI - URI/Sore Throat General Chief Complaint: Upper Respiratory Infection Stated Complaint: COVID positive; weak, fever Time Seen by Provider: 01/26/23 15:26 Source: patient Mode of arrival: ambulatory History of Present Illness HPI Narrative: patient here today with cough and fever has been taken Tylenol tested positive for COVID currently not short of breath but does have weakness with nasal congestion cough is nonproductive. MD elicited complaint: fever and cough Onset (ago): day(s) Consistency: intermittent Severity: mild Related Data Home Medications Medication Instructions Recorded Confirmed trazodone 100 mg tablet 300 mg PO HS 11/29/20 01/26/23 amlodipine 10 mg tablet 10 mg PO DAILY 09/28/22 01/26/23 Allergies Allergy/AdvReac Type Severity Reaction Status Date / Time hydroxychloroquine Allergy Rash Verified 01/26/23 15:22 [From Plaquenil] morphine Allergy Itching Verified 01/26/23 15:22 Review of Systems Review of Systems: All systems reviewed & are unremarkable except as noted in HPI and below PMFSH Past Medical History Medical History Cervical fusion syndrome Contusion of knee, left GERD (gastroesophageal reflux disease) Hypertension Migraine Sprain of finger of right hand Surgical History Surgical History H/O cervical spine surgery H/O: hysterectomy S/p nephrectomy Family History Family History Mother Carcinoma of colon Social History Social History Smoking status: Never smoker Alcohol intake: current Substance use type: does not use Living arrangements: with family Gender identity (if verbalized by the patient): Female Exam Const: General: healthy appearing Nutritional Appearance: well nourished Orientation/consciousness: patient oriented x3 Limitations: no limitations HENMT: Head: normal to inspection Face/Nose/Sinus: Normal external nose present Face and sinus: normal facial exam Eyes: Conjunctivae: conjunctivae normal Pupils: Equal, round and reactive pupils present Neck: Neck: normal visual inspection and no lymphadenopathy Resp: Effort & Inspection: normal respiratory effort Auscultation: clear to auscultation bilaterally Cardio: Rate: regular rate Rhythm: regular rhythm GI: GI Palp: Yes Soft to palpation Auscultation: normal bowel sounds : General: Yes bladder normal to palpation Urinary Catheter: Urinary Catheter: patent and draining Back/Spine/Pelvis: Back: no CVA tenderness Skin: General skin exam: normal color Rashes: no rashes Wounds: no wounds Neuro: General: patient oriented x3 Cranial nerves: Yes Nystagmus not present Speech: normal speech Extrem: General: normal to inspection Psych: Mental Status: mental status grossly normal Affect: normal affect Course Course Emergency Course: Patient blood pressure is elevated will advised patient to take blood pressure medicines and she has been taking it she states that she has been too weak, currently there is no shortness of breath. Vital Signs Vital signs: Vital Signs Temperature 37.7 C H 01/26/23 15:16 Pulse Rate 105 H 01/26/23 15:16 Respiratory Rate 20 01/26/23 15:16 Blood Pressure 187/95 H 01/26/23 15:16 Pulse Oximetry 97 01/26/23 15:16 Oxygen Delivery Room Air 01/26/23 15:16 Temperature 37.7 C H 01/26/23 15:16 Pulse Rate 105 H 01/26/23 15:16 Respiratory Rate 20 01/26/23 15:16 Blood Pressure 187/95 H 01/26/23 15:16 Pulse Oximetry 97 01/26/23 15:16 Oxygen Delivery Room Air 01/26/23 15:16 Critical Care Time Critical Care Time Critical Care Time: No Discharge Plan Discharge Clinical Impression: COVID-19 Patient Disposition: Home, Self-Care Condition: Stable Instructions: Antibiotic Form, C
== END 2023-01-26 15:42 | disposition home or self-care (01) ==
PROVIDERS: Emergency Provider Emergency Medicine; PCP Family Medicine
DX: U07.1 COVID-19 (principal); I10 Essential (primary) hypertension
CPT/HCPCS: 99283

== ENCOUNTER 2023-04-13 11:32 | Emergency (ER) | payer OTHER, SELFPAY ==
--- NOTE | ~2023-04-13 | CT_ITS ---
EXAMINATION: CT lumbar spine wo con DATE: 04/13/2023 12:22 INDICATION: Low back pain. TECHNIQUE: Computed tomography (CT) of the lumbar spine was performed without intravenous contrast. A utomated exposure control and iterative reconstruction technique were employed. The dose-length produ ct was 737.31 mGy-cm. COMPARISON: None FINDINGS: There are changes of left nephrectomy. There is 8 degrees dextrocurvature of thoracolumbar spine. Vertebral body heights are normal. There is mildly decreased disc height at T10-T11, T11-T12, L3-L4, L4-L5, and L5-S1. The following disc levels are specifically discussed: L1-L2: The disc does not extend beyond the endplate margin. There is mild bilateral facet joint osteo arthritis. There is no neural foraminal stenosis. There is no central canal stenosis. L2-L3: The disc is bulging. There is mild right and moderate left facet joint osteoarthritis. There i s mild left neural foraminal stenosis. There is no central canal stenosis. L3-L4: The disc is bulging. There is mild right and severe left facet joint osteoarthritis. There is mild bilateral neural foraminal stenosis. There is mild central canal stenosis. L4-L5: The disc is bulging. There is mild bilateral facet joint osteoarthritis. There is mild bilater al neural foraminal stenosis. There is mild central canal stenosis. L5-S1: The disc is bulging. There is mild bilateral facet joint osteoarthritis. There is mild bilater al neural foraminal stenosis. There is mild central canal stenosis. IMPRESSION: 1. Mild lumbar spondylosis. Reviewed, dictated and finalized at location A. IMPRESSION: 1. Mild lumbar spondylosis.
[2023-04-13 11:35] VITALS: BP 168/88; PULSE 104; RESP 18; TEMP 36.6; O2SAT 97
[2023-04-13 11:37] VITALS: BP 168/88; PULSE 104; RESP 20; TEMP 36.6; O2SAT 97
[2023-04-13] MEDS: ACETAMINOPHEN 500 MG TABLET 1000 MG PO (12:23)
--- NOTE | 2023-04-13 12:37 | ED.BACK ---
HPI - Back Pain/Injury General Chief Complaint: Back Pain/Injury Stated Complaint: lower back pain/tailbone Time Seen by Provider: 04/13/23 11:58 Source: patient Mode of arrival: ambulatory Limitations: no limitations History of Present Illness HPI Narrative: this is 57-year-old female with some chronic back pain presents with some lower back pain radiating into her right leg no known injuries no fever chills no saddle paresthesias no chest pain no shortness of breath no abdominal pain no dysuria no hematuria no urinary frequency. MD elicited complaint: back pain Pertinent past history: prior back pain Onset (ago): day(s) Timing: constant Severity: moderate Pain scale (0-10): 7 Quality: dull and aching Location: lumbar spine Related Data Home Medications Medication Instructions Recorded Confirmed amlodipine 10 mg tablet 10 mg PO DAILY 09/28/22 04/13/23 atorvastatin 40 mg tablet 40 mg PO HS 04/13/23 04/13/23 famotidine 40 mg tablet 40 mg PO BID 04/13/23 04/13/23 quetiapine 100 mg tablet 150 mg PO HS 04/13/23 04/13/23 sertraline 50 mg tablet 50 mg PO DAILY 04/13/23 04/13/23 Allergies Allergy/AdvReac Type Severity Reaction Status Date / Time hydroxychloroquine Allergy Rash Verified 04/13/23 12:12 [From Plaquenil] morphine Allergy Itching Verified 04/13/23 12:12 Review of Systems Review of Systems: All systems reviewed & are unremarkable except as noted in HPI and below PMFSH Past Medical History Medical History Cervical fusion syndrome Contusion of knee, left GERD (gastroesophageal reflux disease) Hypertension Migraine Sprain of finger of right hand Surgical History Surgical History H/O cervical spine surgery H/O: hysterectomy S/p nephrectomy Family History Family History Mother Carcinoma of colon Social History Social History Smoking status: Never smoker Alcohol intake: current Substance use type: does not use Living arrangements: with family Gender identity (if verbalized by the patient): Female Exam Const: General: healthy appearing Nutritional Appearance: well nourished Orientation/consciousness: patient oriented x3 Limitations: no limitations HENMT: Head: normal to inspection Eyes: Conjunctivae: conjunctivae normal EOM: EOMs intact bilaterally Neck: Neck: normal visual inspection Chest: Chest palpation & inspection: normal inspection of the chest Resp: Effort & Inspection: normal respiratory effort Auscultation: clear to auscultation bilaterally Cardio: Rate: regular rate Rhythm: regular rhythm GI: GI Palp: Yes Soft to palpation : General: Yes bladder normal to palpation External Female Exam: normal external appearance Urinary Catheter: Urinary Catheter: patent and draining Back/Spine/Pelvis: Back: no CVA tenderness Skin: General skin exam: normal color Wounds: no wounds Neuro: General: patient oriented x3, moves all extremities, no meningeal signs and no focal motor deficits Gait exam (Neuro): Normal gait present Extrem: General: normal to inspection Psych: Mental Status: mental status grossly normal Affect: normal affect Course Course Emergency Course: Patient received a dose of 1g Tylenol, and had a CT scan of her lumbar spine which showed mild spinal stenosis with some bulging discs and Spondylosis. Vital Signs Vital signs: Vital Signs Temperature 36.6 C 04/13/23 11:35 Pulse Rate 104 H 04/13/23 11:35 Respiratory Rate 18 04/13/23 11:35 Blood Pressure 168/88 H 04/13/23 11:35 Pulse Oximetry 97 04/13/23 11:35 Oxygen Delivery Room Air 04/13/23 11:35 Temperature 36.6 C 04/13/23 11:37 Pulse Rate 104 H 04/13/23 11:37 Respiratory Rate 20 04/13/23 11:37 Blood Pressure 168/88 H
[2023-04-13 12:57] VITALS: BP 147/85; PULSE 106; RESP 16; TEMP 36.6; O2SAT 100
== END 2023-04-13 12:58 | disposition home or self-care (01) ==
PROVIDERS: Emergency Provider Emergency Medicine; PCP Family Medicine
DX: M54.16 Radiculopathy, lumbar region (principal); M54.31 Sciatica, right side; I10 Essential (primary) hypertension; K21.9 Gastro-esophageal reflux disease without esophagitis
CPT/HCPCS: 72131; 99284

== ENCOUNTER 2023-09-17 14:38 | Outpatient (RCR) | payer OTHER, SELFPAY ==
--- NOTE | 2023-09-17 15:12 | OPREHPOC ---
Outpatient Therapy Plan of Care This is a Multidisciplinary Plan of Care that may contain components documented by all disciplines (PT, OT, and ST.) PT Problem 1 PT Problem #1 Knowledge Deficit PT Goal 1 Goal 1. independent and compliant with HEP Target Visit 3 PT Problem 2 PT Problem #2 Impaired Range of Motion PT Goal 1 Goal 1. improve R knee arom flexion to 120 degrees or better Target Visit 6 PT Problem 3 PT Problem #3 Impaired Functional Mobil PT Goal 1 Goal 1. LEFS to display less than 30% functional deficits 2. patient to report no pain with palpation of the bilateral pes anserine area 3. patient to ambulate up and down steps with reciprocal mechanics and no pain 4. 20 degrees or less bilateral hamstrings tightness per the 90/90 test. Target Visit 6
--- NOTE | 2023-09-17 15:12 | PTOPEVAL1 ---
Assessment and note entered by JT File, PT Evaluation Information Assessment Status Evaluation Diagnosis antalgic gait, bilateral pes anserine bursitis, s/ p R TKA Onset 09/13/23 Subjective Information patient reports prior to have a recent injection to the R knee she was walking off balance. she reports her lower back and hip were bothering her all the time. she reports since the shot she feels better. she reports the doctor believes the pes anserine area is the culprit of all her symptoms. she reports she has difficulty with walking, walking down hill, and ambulation of steps ( especially down steps). she reports she only had an injection to the R knee. Reported Pain Level Pain Score 0,0: Self Report Assessment PT Clinical Summary mrs. mitchell is a 58 yo woman who presents to skilled PT for evaluation of bilateral knee pain. she presents with signs and symptoms of more significant pain on the R LE. she is tender to palpation at the bilateral pes anserine area, displays bilateral hamstrings tightness, and reports difficulty with stairs/flat surface ambulation. she would benefit from continued skilled PT to address her objective/functional deficits and progress towards pain free walking, stairs, standing, and other functional activity performance. Plan of Care Interventions Gait Training,Hot Pack/Cold Pack,Manual Therapy, Neuro Re-education,Patient/Caregiver Educati, Therapeutic Activities,Therapeutic Exercise PT Services Indicated Yes Treatment Frequency and 2x weekly for 6 visits Duration These treatments will address the objective and functional deficits as defined above. The patient will be advanced safely and appropriately in order for the patient to progress towards his/her prior level of function. Additional exercises will be introduced and as well as a comprehensive home exercise program upon discharge, if needed, ?to ensure carryover of functional gains achieved in the clinic. This treatment plan has been reviewed and agreement upon by the patient.
== END 2023-09-26 20:00 | disposition home or self-care (01) ==
LOC: CHSPT 14:38
PROVIDERS: PCP Family Medicine; Visit Provider Nurse Practitioner Family
DX: R26.89 Other abnormalities of gait and mobility (principal); M70.51 Other bursitis of knee, right knee; M70.52 Other bursitis of knee, left knee; Z96.651 Presence of right artificial knee joint
CPT/HCPCS: 97110; 97140; 97161

== ENCOUNTER 2024-01-06 18:41 | Emergency (ER) | payer OTHER, SELFPAY ==
[2024-01-06 18:44] VITALS: BP 177/99; PULSE 120; TEMP 37; O2SAT 94
[2024-01-06 18:46] VITALS: BP 177/99; PULSE 120; TEMP 37; O2SAT 94
--- NOTE | 2024-01-06 18:57 | ED.GENADULT ---
HPI - General Adult General Chief complaint: Neck Pain/Injury Stated complaint: neck pain Time Seen by Provider: 01/06/24 18:57 History of Present Illness HPI narrative: 58yo woman h/o chronic neck pain, presents with acute neck pain and right shoulder pain, worse with range of motion of the neck, onset 4 days ago. Headache is starting today, which she describes as similar to prior migraines. No fevers, chills, numbness, weakness. Does frequent lifting of grandkids ages 1, 3, and 4, as she is their primary caregiver. Related Data Home Medications Medication Instructions Recorded Confirmed amlodipine 10 mg tablet 10 mg PO DAILY 09/28/22 01/06/24 atorvastatin 40 mg tablet 40 mg PO HS 04/13/23 01/06/24 famotidine 40 mg tablet 40 mg PO BID 04/13/23 01/06/24 quetiapine 100 mg tablet 150 mg PO HS 04/13/23 01/06/24 cefuroxime axetil 500 mg tablet 500 mg PO BID 01/06/24 01/06/24 duloxetine 60 mg capsule,delayed 60 mg PO DAILY 01/06/24 01/06/24 release Allergies Allergy/AdvReac Type Severity Reaction Status Date / Time hydroxychloroquine Allergy Rash Verified 01/06/24 18:44 [From Plaquenil] morphine Allergy Itching Verified 01/06/24 18:44 Review of Systems Review of Systems: All systems reviewed & are unremarkable except as noted in HPI and below Constitutional: Constitutional: Denies chills and Denies fever(s) ENT: Denies dysphagia Cardiovascular: Cardiovascular: Denies chest pain Respiratory: Respiratory: Denies dyspnea Gastrointestinal: Gastrointestinal: Denies abdominal pain [facility] Past Medical History Medical History Cervical fusion syndrome Contusion of knee, left GERD (gastroesophageal reflux disease) Hypertension Migraine Sprain of finger of right hand Surgical History Surgical History H/O cervical spine surgery H/O: hysterectomy S/p nephrectomy Family History Family History Mother Carcinoma of colon Social History Social History Smoking status: Never smoker Alcohol intake: current Substance use type: does not use Living arrangements: with family Gender identity (if verbalized by the patient): Female Exam Const: General: healthy appearing and alert Nutritional Appearance: well nourished HENMT: Head: normal to inspection, no contusions and no hematomas Eyes: Conjunctivae: conjunctivae normal Neck: Neck: normal visual inspection Other: no spinal tenderness Resp: Effort & Inspection: normal respiratory effort Cardio: Rate: regular rate GI: Inspection: non-distended Back/Spine/Pelvis: Back: no CVA tenderness Other: tender trapezius above right scapula Skin: General skin exam: normal color, no jaundice and no pallor Neuro: General: patient oriented x3, moves all extremities and CN's II-XI intact bilaterally Speech: normal speech Gait exam (Neuro): Normal gait present Extrem: General: no clubbing, cyanosis or edema Course Vital Signs Vital signs: Vital Signs Oxygen Delivery Room Air 01/06/24 18:41 Temperature 37.0 C 01/06/24 18:46 Pulse Rate 120 H 01/06/24 18:46 Blood Pressure 177/99 H 01/06/24 18:46 Pulse Oximetry 94 01/06/24 18:46 Oxygen Delivery Room Air 01/06/24 18:46 Medical Decision Making MDM Narrative Medical decision making narrative: acute neck and right shoulder pain DDx muscle strain, spasm, subacromial bursitis, tension headache, less likely migraine, no cervical radiculopathy or sign of spinal emergency. Vital Signs Vital Signs: Vital Signs Oxygen Delivery Room Air 01/06/24 18:41 Temperature 37.0 C 01/06/24 18:46 Pulse Rate 120 H 01/06/24 18:46 Blood Pressure 177/99 H 01/06/24 18:46 Pulse Oximetry 94 01/06/24 18:46 Oxygen Delivery Room
[2024-01-06] MEDS: methocarbamoL 500 MG TABLET 1000 MG PO (19:16)
[2024-01-06] MEDS: HYDROcodone/acetaminophen (*CRX) 5-325 MG TABLET 2 TAB PO (19:16)
[2024-01-06] MEDS: KETOROLAC (*BKC) 60 MG/2 ML VIAL IM (19:19)
[2024-01-06] MEDS: ORPHENADRINE CITRATE 30 MG/ML 2 ML VIAL 60 MG IM (19:20)
[2024-01-06 19:39] VITALS: BP 140/75; PULSE 84; RESP 18; TEMP 36.6; O2SAT 98
== END 2024-01-06 19:39 | disposition home or self-care (01) ==
PROVIDERS: Emergency Provider Emergency Medicine
DX: G44.209 Tension-type headache, unspecified, not intractable (principal); S16.1XXA Strain of muscle, fascia and tendon at neck level, initial encounter; M75.51 Bursitis of right shoulder; I10 Essential (primary) hypertension; Z79.899 Other long term (current) drug therapy; X58.XXXA Exposure to other specified factors, initial encounter
CPT/HCPCS: 96372; 99284; A4565; A9270; J1885; J2360

== ENCOUNTER 2024-09-29 07:57 | Outpatient (RCR) | payer OTHER, SELFPAY ==
--- NOTE | 2024-09-29 08:01 | OPREHPOC ---
Outpatient Therapy Plan of Care This is a Multidisciplinary Plan of Care that may contain components documented by all disciplines (PT, OT, and ST.) PT Problem 1 PT Problem #1 Knowledge Deficit PT Goal 1 Goal / Goal Update The patient will be independent in a home exercise program. Target Visit 4 PT Problem 2 PT Problem #2 Pain PT Goal 1 Goal / Goal Update The patient will report no greater than 3/10 bilateral shoulder pain with feed mixer helper. Target Visit 12 PT Problem 3 PT Problem #3 Impaired Functional Mobil PT Goal 1 Goal / Goal Update The patient will demonstrate 30% or less self perceived disability per the Quick DASH questionnaire. The patient will demonstrate the ability to lift 5 # overhead to improve ability to reach into overhead cabinets. Target Visit 12 PT Problem 4 PT Problem #4 Impaired Range of Motion PT Goal 1 Goal / Goal Update The patient will demonstrate pain free shoulder AROM in all planes bilaterally. Target Visit 12 PT Problem 5 PT Problem #5 Impaired Strength PT Goal 1 Goal / Goal Update The patient will demonstrate at least 4+/5 bilateral shoulder strength. Target Visit 12
--- NOTE | 2024-09-29 08:01 | PTOPEVAL1 ---
Assessment and note entered by Jodi Cassidy, PT Evaluation Information Assessment Status Evaluation ICD-10 Condition Codes (PT) M25.511,M25.512 Onset 09/25/24 Subjective Information Ashley Young reports she drove to [place] in March 2024 and she started having pain in her left posterior shoulder. The pain then moved into her arm and then her neck started hurting last week. She has trouble lifting her arms, sweeping, mopping, and opening medicine jars. She also started having pain in her hips last week. She has a brother that has RA and she thinks she may have it as well however, she has not been tested for it. She had an x-ray about two months ago of her neck and back and they came back normal. She will see an surgery specialist on 10/02/24. She is using a muscle relaxer and a depression/pain pill without relief. She has a h/o 3 cervical surgeries . Reported Pain Level Pain Score 4,4: Self Report Assessment PT Clinical Summary Ashley Young presents with bilateral shoulder pain as well as neck pain. She started having pain after driving to [place] in March 2024. She reports constant pain and difficulty moving her arms overhead, sweeping, mopping, and opening medicine jars. She objectively demonstrates decreased and painful bilateral shoulder and cervical AROM, decreased bilateral shoulder strength, positive special tests for shoulder impingement, rotator cuff tendonitis, and cervical nerve root irritation. She will benefit from skilled PT to address these limitations. Plan of Care Interventions Electrical Stimulation,Hot Pack/Cold Pack,Manual Therapy,Neuro Re-education,Patient/Caregiver Educati,Prosthetic Training,Therapeutic Exercise PT Services Indicated Yes Treatment Frequency and 3 times a week for 12 visits Duration These treatments will address the objective and functional deficits as defined above. The patient will be advanced safely and appropriately in order for the patient to progress towards his/her prior level of function. Additional exercises will be introduced and as well as a comprehensive home exercise program upon discharge, if needed, ?to ensure carryover of functional gains achieved in the clinic. This treatment plan has been reviewed and agreement upon by the patient.
--- NOTE | 2024-10-27 13:02 | PCPTNOTE ---
Patient called & cancelled scheduled appointment this date due to [not sleeping well due to pain. ]
--- NOTE | 2024-11-06 07:57 | PCPTNOTE ---
Cancelled session. Going to [place] to get an XRAY.
--- NOTE | 2024-11-09 12:19 | PCPTNOTE ---
Addendum entered by Yoselin Jones, PULL OUT OPERATOR 11/09/24 13:50: Pt also reports that she feels therapy is making her pain worse. She reports she called her doctor and was told to stop therapy at this time. Original Note: Cancelled session. Forgot she had therapy and is sick from watching her granchildren.
--- NOTE | 2024-12-31 10:11 | PCPTNOTE ---
12/31/24: Pt was last treated in skilled PT on 11/04/24. She is discharged. -Jodi Cassidy, PT
== END 2024-12-28 23:59 | disposition home or self-care (01) ==
LOC: CHSPT 07:57
PROVIDERS: Visit Provider Family Medicine
DX: M25.519 Pain in unspecified shoulder (principal)
CPT/HCPCS: 97014; 97110; 97140; 97161; G0283